=== PATIENT | female | born 1950 | race Caucasian/White ===

== ENCOUNTER 2021-02-18 07:22 | Emergency (ER) | payer MEDICARE, OTHER ==
[~2021-02-18] VITALS: Ht 175 cm; Wt 77.0 kg
[2021-02-18 07:35] VITALS: BP 133/65
--- NOTE | 2021-02-18 07:58 | ED Lower Extremity ---
General Chief Complaint: Lower Extremity Stated Complaint: L BIG TOE INJ;R FOOT PAIN Nursing Triage Note: ARRIVED VIA AMB TO ROOM 05. COMPLAINS OF RIGHT FOOT PAIN AFTER TRIPPING THE OTHER DAY. STATES SHE STUBBED HER LEFT GREAT TOE YESTERDAY AND THINKS THE NAIL NEEDS TO COME OFF. Source: patient Exam Limitations: no limitations History of Present Illness Date Seen by Provider: Feb 18, 2021 Time Seen by Provider: 07:45 Initial Comments Patient is a 70-year-old female who presents to the emergency room with a chief complaint of left great toe pain. Patient states she was moving a large heavy mattress last night when she dropped it on her foot. She states she is had some difficulty with bearing weight secondary to the pain in her left great toe. She is concerned she fractured it. She denies any complaints of other ankle knee or hip injury. She did state that about 6 weeks ago she twisted and fell injuring her right foot. No swelling. She states she has been "hobbling around" on the foot ever since. She has not taken any Tylenol or ibuprofen for the discomfort. She did not injure her right knee or hip. No other complaints of illness or injury. All other review of systems reviewed and negative except as stated. Onset: other (Last night) Pain/Injury Location: left 1st toe Method of Injury: direct blow Allergies and Home Medications Allergies Coded Allergies: No Known Drug Allergies (Unverified , 02/18/21) Patient Home Medication List Home Medication List Reviewed: Yes Review of Systems Constitutional: see HPI Respiratory: no symptoms reported Cardiovascular: no symptoms reported Gastrointestinal: no symptoms reported Genitourinary: no symptoms reported Musculoskeletal: joint pain (Left great toe) Skin: other (Small abrasion) All Other Systems Reviewed Negative Unless Noted: Yes Past Oouhqxe-Oetcbw-Rjhkkn Hx Patient Social History Tobacco Use?: No Substance use?: No Additional substance use comme: PAST HX OF ETOH Physical Exam Vital Signs Vital Signs - First Documented 02/18/21 07:35 Temp 36.3 Pulse 83 Resp 16 B/P (MAP) 133/65 (87) Pulse Ox 94 O2 Delivery Room Air Capillary Refill : Less Than 3 Seconds Height, Weight, BMI Height: '" Weight: lbs. oz. kg; 25.00 BMI Method: General Appearance: WD/WN, no apparent distress Neck: full range of motion Cardiovascular: regular rate, rhythm Respiratory: no respiratory distress, no accessory muscle use Hips: bilateral hip normal range of motion, bilateral hip no evidence of injury Legs: bilateral leg non-tender, bilateral leg normal inspection, bilateral leg normal range of motion, bilateral leg no evidence of injury Knees: bilateral knee non-tender, bilateral knee normal inspection, bilateral knee normal range of motion, bilateral knee no evidence of injury Ankles: bilateral ankle non-tender, bilateral ankle normal inspection, bilateral ankle normal range of motion, bilateral ankle no evidence of injury Feet: right foot non-tender, right foot normal inspection, right foot normal range of motion, right foot no evidence of injury; left foot nail injury (Patient has subungual hematoma to the left great toenail. Small abrasion just proximal to the base of the nail. Great toe is slightly swollen. A little bruised.; Left great toenail is slightly loosened. No indication for tr ephination at this time); right foot other (Patient complains of some discomfort to the lateral aspect of the right foot) Neurologic/Psychiatric: no motor/sensory deficits, alert, normal mood/affect, oriented x 3 Skin: normal color, warm/dry Progress/Results/Core Measures Results/Orders My Orders Orders - SHEN ROLDNA MD Toe(S) (02/18/21 07:52) Vital Signs/I&O 02/18/21 07:35 Temp 36.3 Pulse 83 Resp 16 B/P (MAP) 133/65 (87) Pulse Ox 94 O2 Delivery Room Air Blood Pressure Mean: 87 Diagnostic Imaging Diagonstic Imaging: Xray Plain Films/CT/US/NM/MRI: other Comments Plain films left great toe, no obvious fractures or dislocations; interpreted by me. Departure Impression Primary Impression: Contusion of left great toe with damage to nail Qualified Codes: S90.212A - Contusion of left great toe with damage to nail, initial encounter Additional Impression: Subungual hematoma of great toe Disposition: 01 HOME, SELF-CARE Condition: Stable Departure-Patient Inst. Decision time for Depature: 07:56 [facility]: [facility] [place] Instructions: Bruising Under the Nail Add. Discharge Instructions: You can take [id number] ibuprofen, 2 or 3 tablets which is 400 to 600 mg, every 6-8 hours with food as needed for pain. Ice packs for 20 minutes at a time every hour will help with any swelling or discomfort to the left toe. Keep the nail in place until the nailbed starts to heal. Your toenail may fall off on its own. Return to the emergency room for any increased swelling, redness, drainage of pus, fever or any other emergent concerning symptoms. Follow-up with your primary care physician. SHEN ROLDAN MD Feb 18, 2021 07:57
--- NOTE | 2021-02-18 08:29 | Diagnostic Imaging Report ---
CLINICAL HISTORY: Stubbed left toe yesterday. COMPARISON: None. TECHNIQUE: 3 views of the left great toe. FINDINGS: There is no acute fracture or dislocation of the left great toe. Alignment is anatomic. Degenerative changes are seen in the left 1st IP joint with cortical irregularity and sclerosis present. There is mild soft tissue edema involving the left great toe. IMPRESSION: 1. No acute fracture or dislocation of the left great toe. 2. 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 Dictated by: Dictated on workstation # [id number]
[2021-02-18] MEDS ORDERED: TETANUS,DIPTH,PERTUSS P/F (BOOSTRIX) 0.5 ML VIAL IM ONE (08:30)
== END 2021-02-18 08:35 | disposition home or self-care (01) ==
LOC: ER 07:25
DX: S90.212A Contusion of left great toe with damage to nail, initial encounter (principal); X50.1XXA Overexertion from prolonged static or awkward postures, initial encounter
CPT/HCPCS: 73660